=== PATIENT | female | born 1955 | race Caucasian/White ===

== ENCOUNTER 2020-06-25 10:28 | Outpatient (CLI) | payer MEDICARE ==
--- NOTE | 2020-06-25 11:34 | MMO ---
Bilateral MAMMO Bilat Diag [facility]. CLINICAL HISTORY: Patient is 64 years old and is seen for diagnostic exam and lump or thickening in the left breast. The patient has no family history of breast cancer. The patient has a history of Skin cancer. The patient has a history of bilateral Explantation at age 38 and bilateral Implants in 1978. VIEWS: The views performed were: bilateral craniocaudal with tomosynthesis; bilateral mediolateral oblique with tomosynthesis; and bilateral mediolateral with tomosynthesis. FILMS COMPARED: The present examination has been compared to prior imaging studies performed at [facility] on 06/25/2020, and at [facility] on 11/07/2014, 04/30/2016 and 03/09/2018. This study has been interpreted with the assistance of computer-aided detection. MAMMOGRAM FINDINGS: There are scattered fibroglandular densities. Again demonstrated is a large mass deep within the left breast extending from the axillary tail to the central region of the breast against the chest wall. There are new lobular components to this mass, including a 5 cm mass in the axillary tail region corresponding to the palpable finding. On ultrasound, this demonstrates features compatible with a debris filled cyst. There is a new lobular component to this mass centrally at the caudal extent of the existing mass, measuring approximately 2.3 cm. This appears hypoechoic and not clearly cystic, but is oval and smoothly marginated without shadowing. In the right breast, there are no suspicious masses, calcifications or areas of architectural distortion. IMPRESSION: FINDING IN THE LEFT BREAST IS PROBABLY BENIGN. FOLLOW-UP IN 6 MONTHS IS RECOMMENDED. GIVEN THE LONGSTANDING NATURE OF THIS PROCESS AND THE BENIGN IMAGING APPEARANCE OF THE NEW FINDINGS, THESE MASSES ARE FELT TO MOST LIKELY BE RELATED TO PRIOR IMPLANTS SUCH A GRANULOMATOUS PROCESS. SURGICAL CONSULTATION IS RECOMMENDED. FOLLOW UP MAMMOGRAPHY AND SONOGRAPHY IS RECOMMENDED IN THE ABSENCE OF SURGICAL INTERVENTION. THE RESULTS OF THIS EXAM WERE SENT TO THE PATIENT. ACR BI-RADS Category 3 - Probably benign finding - short interval follow-up suggested. [facility] will notify the patient of the need for additional imaging services. MAMMOGRAPHY NOTE: 1. A negative mammogram report should not delay a biopsy if a dominant of clinically suspicious mass is present. 2. Approximately 10% to 15% of breast cancers are not detected by mammography. 3. Adenosis and dense breasts may obscure an underlying neoplasm. Reported by: JENNYFER CALLAHAN MD Electonically Signed: [id number]
--- NOTE | 2020-06-25 11:43 | ULT ---
EXAM: US Breast Limited Lt PROVIDED CLINICAL HISTORY: Left breast palpable abnormality COMPARISON: Diagnostic mammogram performed concurrently as well as prior outside mammograms FINDINGS: Limited sonographic interrogation was performed of the left breast in the region of palpable and mamm ographic concern. At the 12:00 position of the left breast in the region of palpable concern is a complex cyst measurin g approximately 4 x 3.2 x 3.6 cm. This is at the cranial extent of a ovoid hypoechoic mass extending along the anterior left chest wall inferiorly, corresponding to a process shown to be mammographically stable for long period of time. At the caudal extent of this mammographically stable mass, is an oval hypoechoic mass measuring appro ximately 3.1 cm. This demonstrates smooth margins. This is new on mammogram. IMPRESSION: Multiple left breast masses, the palpable finding representing a complex cyst and a mammographically new mass demonstrating probably benign imaging findings. Findings favor a granulomatous process. Surgical consultation is recommended. In the absence of surgical intervention, six-month follow-up ma mmogram and ultrasound recommended. Findings discussed with the referring clinician 06/25/2020 11:35 AM.
== END 2020-06-25 10:29 | disposition home or self-care (01) ==
LOC: BICMAMMO 10:28
PROVIDERS: ATTEND Family Medicine
DX: N63.32 Unspecified lump in axillary tail of the left breast (principal); N63.42 Unspecified lump in left breast, subareolar; N60.02 Solitary cyst of left breast; Z98.82 Breast implant status
CPT/HCPCS: 76642; 77066; G0279

== ENCOUNTER 2020-09-04 09:25 | Outpatient (CLI) | payer MEDICARE ==
--- NOTE | 2020-09-04 14:28 | MRI ---
EXAM: MRI of the breasts without and with contrast HISTORY: Left breast mass. The patient had a history of silicone breast implants 40 years ago. Status post implant removal 25 years ago. The pocket of fluid in the upper aspect of the left breast continues to get bigger. COMPARISON: Breast ultrasound 06/25/2020; mammograms 06/25/2020, 03/09/2018, 04/30/2016, 10/21/2014, 02/07/20 13, 11/24/2010 TECHNIQUE: Multiplanar multisequence MR images were obtained of the breasts without and with IV contr ast. 3-D MIP reformats and contrast enhancement curves were generated on a [employer] workstation. FINDINGS: Scattered fibroglandular is seen. Minimal background parenchymal enhancement is seen. The left breast is larger than the right. The patient appears to have had prior prepectoral implant placement and removal of implants. Scarring is seen in front of both pectoralis major muscles which likely represents the prior fibrous capsule that previously surrounded the implants. In the left breast, there is a complex fluid collect ion within the remaining fibrous capsule. This fluid demonstrates high T1 and T2 signal. No significant residual silicone is seen on the silicone sensitive sequence. Nodularity and calcificatio ns are seen along the wall of the fibrous capsule. High T1 signal is seen along the rim of the implant capsule on the precontrast images and no obvious increased intensity is seen on the postcontr ast images to suggest enhancement. There are areas of outpouching from the fibrous capsule which do not demonstrate significant rim enhancement. The most prominent of these outpouchings is in the super ior aspect of the breast. This currently measures 4.1 cm in size. No suspicious mass or abnormal enhancement is seen within the parenchyma of either breast. No axillary adenopathy is seen. No internal mammary lymph nodes are identified. The visualized liver is unremarkable. The visualized bones are unremarkable. IMPRESSION: There is a complex fluid collection within the patient's residual remote left implant fibrous capsule . This appeared contained by the fibrous capsule on the mammograms provided from 2010 until 2017. However, there was a change with multiple outpouchings developing from the fibrous capsule on the [facility] mogram in June 2020. One of these outpouchings in the upper aspect of the breast is the patient's palpable abnormality. The cause for the continued persistent accumulation of fluid is uncer tain. No obvious enhancement is seen to suggest an underlying malignancy.
== END 2020-09-04 09:26 | disposition home or self-care (01) ==
LOC: BICMRI 09:25
PROVIDERS: ATTEND Plastic Surgery
DX: N63.20 Unspecified lump in the left breast, unspecified quadrant (principal)
CPT/HCPCS: 82565; C8908; A9577

== ENCOUNTER 2021-02-13 10:15 | Day surgery (SDC) | payer MEDICARE ==
[2021-02-12 14:05] VITALS: BMI 27.4
[2021-02-13] MEDS ORDERED: Heparin 5,000 UNITS/ML VIAL ONE (11:00)
[2021-02-13] MEDS ORDERED: Gentamicin 80 MG/2 ML VIAL ONE (11:33)
[2021-02-13] MEDS ORDERED: Bupivacaine 0.25% HCL 30 ML VIAL ONE (11:33)
[2021-02-13] MEDS ORDERED: Dexamethasone 4 mg/ml Vial ONE (11:33)
[2021-02-13] MEDS ORDERED: EPINEPHrine 1 MG/ML AMP ONE (11:33)
[2021-02-13] MEDS ORDERED: Fentanyl 100 MCG/2 ML VIAL ONE ×2 (11:35→14:50)
[2021-02-13] MEDS ORDERED: Lidocaine 1% PF 5 ML VIAL ONE (12:05)
[2021-02-13] MEDS ORDERED: ePHEDrine Sulfate 50 MG/10 ML VIAL ONE (12:05)
[2021-02-13] MEDS ORDERED: Dexamethasone 20 MG/5 ML VIAL ONE (12:05)
[2021-02-13] MEDS ORDERED: PHENYLEPHRINE-NS 100 MCG/ML 10 ML SYRINGE ONE (12:05)
[2021-02-13] MEDS ORDERED: PROPOFOL 200 MG/20 ML VIAL ONE (12:05)
[2021-02-13] MEDS ORDERED: Ketorolac Tromethamine 30 MG/ML VIAL ONE (12:05)
[2021-02-13] MEDS ORDERED: Ondansetron PF 4 MG/2 ML Vial ONE (12:05)
[2021-02-13] MEDS ORDERED: Tranexamic Acid 1,000 MG/10 ML VIAL ONE (13:42)
[2021-02-18 11:15] LABS: Fungus Stain Final report (.)
== END 2021-02-13 17:10 | disposition home or self-care (01) ==
LOC: SDC 10:15
PROVIDERS: ATTEND Plastic Surgery
PROC: 0HWU0JZ Revision of Synthetic Substitute in Left Breast, Open Approach (ICD-10-PCS; principal; 2021-02-13)
DX: N64.89 Other specified disorders of breast (principal); N64.81 Ptosis of breast; I10 Essential (primary) hypertension; M19.90 Unspecified osteoarthritis, unspecified site; E78.5 Hyperlipidemia, unspecified; G89.4 Chronic pain syndrome; A04.72 Enterocolitis due to Clostridium difficile, not specified as recurrent; Z87.891 Personal history of nicotine dependence; Z79.1 Long term (current) use of non-steroidal anti-inflammatories (NSAID); Z79.899 Other long term (current) drug therapy; Z88.0 Allergy status to penicillin; Z88.5 Allergy status to narcotic agent; Z90.13 Acquired absence of bilateral breasts and nipples
CPT/HCPCS: 87070; 87102; 87116; 87205; 87206; 87324; 87449; 88112; 88184; 88304; 88305; 88342; J0171; J0690; J1100; J1580; J1644; J1885; J2405; J2704; J3010; J3370; S0020

== ENCOUNTER 2025-04-10 11:11 | Outpatient (CLI) | payer MEDICARE | END 2025-04-10 11:12 | disposition home or self-care (01) | LOC: SCSRAD 11:11 | PROVIDERS: ATTEND Family Medicine | DX: M54.2 Cervicalgia (principal); R06.02 Shortness of breath; M47.812 Spondylosis without myelopathy or radiculopathy, cervical region | CPT/HCPCS: 71046; 72050 ==